=== PATIENT | male | born 1950 | race Caucasian/White ===

== ENCOUNTER → 2022-04-26 | Outpatient (CLI) | payer MEDICARE ==
--- NOTE | 2022-04-26 14:41 | XR ---
EXAMINATION TYPE: XR Hip Complete RT DATE OF EXAM: 04/26/2022 CLINICAL HISTORY: Right hip pain for 2 months. Hip replacement 2019. TECHNIQUE: AP and frogleg views of the right hip are obtained. COMPARISON: None. FINDINGS: There is no acute fracture/dislocation evident in the right hip. Metallic hardware from to [place] right hip arthroplasty is present. Position appears satisfactory. No suspicious surrounding lucen cy identified. Overlying clothing or blanket material is present. IMPRESSION: As above.
== END | disposition home or self-care (01) ==
LOC: RADXRMAIN 14:22
PROVIDERS: ATTEND Internal Medicine
DX: M25.551 Pain in right hip (principal); Z96.641 Presence of right artificial hip joint
CPT/HCPCS: 73502

== ENCOUNTER → 2023-02-02 | Outpatient (CLI) | payer MEDICARE ==
--- NOTE | 2023-02-02 21:25 | MR ---
EXAMINATION TYPE: MR brain wo/w con DATE OF EXAM: 02/02/2023 8:15 PM CLINICAL INDICATION:Male, 72 years old with history of G45.3 AMAUROSIS FUGAX; PHH, Amaurosis fugax of right eye COMPARISON: CT 01/18/2023 TECHNIQUE: Multi planar, multi sequence imaging was performed through the brain including: T1, T2, In version recovery, susceptibility weighted imaging and gradient echo imaging and Diffusion weighted im aging. The patient was then given intravenous contrast and multi planar, T1 fat-saturation images wer e obtained. IV Contrast: 9.5 cc Gadobutrol FINDINGS: The vergara-white junctions, ventricular system, basal cisterns appear unremarkable. Diffusion-weighted imaging shows no evidence of restricted diffusion to suggest acute/subacute infarct. Intracranial ar terial flow voids are maintained. Midline structures show no abnormality. Scattered foci of high T2 s ignal intensity are seen within the periventricular white matter. The susceptibility weighted images do not reveal any evidence for micro-hemorrhage. After administration of gadolinium, no abnormal enha ncement is seen. The bone marrow signal is within normal limits. Paranasal sinuses and mastoid air cells: Mild scattered paranasal sinus disease. Visualized orbits: The globes appear symmetrical. Signal intensity of the globes and optic nerves ar e within normal limits. The intraorbital fat appears preserved. Both lacrimal glands are unremarkab le. The extraocular muscles appear symmetric. After administration of contrast, no abnormal enhanceme nt is seen. IMPRESSION: 1. No evidence of intracranial mass, acute/subacute infarct, or abnormal enhancement. 2. Nonspecific white matter changes, likely related to small vessel ischemic disease 3. No evidence of intraorbital mass or significant abnormality.
== END | disposition home or self-care (01) ==
LOC: RADMRIMAIN 18:59
PROVIDERS: ATTEND Internal Medicine
DX: G45.3 Amaurosis fugax (principal); R90.82 White matter disease, unspecified
CPT/HCPCS: 70553; A9585

== ENCOUNTER → 2023-02-08 | Outpatient (CLI) | payer MEDICARE ==
--- NOTE | 2023-02-08 22:07 | CA ---
Transthoracic Echo Report Name: Jj Odom Age: 72 Gender: M : 1950 Exam Date: 02/08/2023 08:13 Exam Location: [facility] Ht (in): 69 Wt (lb): 215 Ordering Physician: Garland Altamirano MD Attending/Referring Phys: Supervisor [employer] Willow Arre[facility] Procedure CPT: Indications: G45.3 anaurosis fugax R eye Cardiac Hx: Technical Quality: Fair Contrast 1: Agitated Saline Total Dose (mL): 6 Contrast 2: Total Dose (mL): MEASUREMENTS (Male / Female) Normal Values 2D ECHO LV Diastolic Diameter PLAX 4.9 cm 4.2 - 5.9 / 3.9 - 5.3 cm LV Systolic Diameter PLAX 3.1 cm IVS Diastolic Thickness 0.8 cm 0.6 - 1.0 / 0.6 - 0.9 cm LVPW Diastolic Thickness 0.9 cm 0.6 - 1.0 / 0.6 - 0.9 cm LV Relative Wall Thickness 0.4 LVOT Diameter 2.0 cm LA Volume 49.8 cm??? 18 - 58 / 22 - 52 cm??? LA Volume Index 22.5 cm???/m??? 16 - 28 cm???/m??? Ascending Aorta Diameter 3.6 cm M-MODE Aortic Root Diameter MM 3.0 cm LA Systolic Diameter MM 4.4 cm LA Ao Ratio MM 1.4 AV Cusp Separation MM 2.1 cm DOPPLER AV Peak Velocity 125.2 cm/s AV Peak Gradient 6.3 mmHg AV Mean Velocity 92.6 cm/s AV Mean Gradient 3.8 mmHg AV Velocity Time Integral 26.1 cm LVOT Peak Velocity 133.9 cm/s LVOT Peak Gradient 7.2 mmHg LVOT Velocity Time Integral 25.5 cm LVOT Stroke Volume 80.9 cm??? LVOT Stroke Volume Index 38.0 ml/m??? LVOT Cardiac Index 2050.9 cm???/min???m??? AV Area Cont Eq vti 3.1 cm??? AV Area Cont Eq pk 3.4 cm??? MV Area PHT 3.0 cm??? Mitral E Point Velocity 53.8 cm/s Mitral A Point Velocity 62.6 cm/s Mitral E to A Ratio 0.9 MV Deceleration Time 254.5 ms LV E' Lateral Velocity 10.4 cm/s Mitral E to LV E' Lateral Ratio 5.2 LV E' Septal Velocity 6.8 cm/s Mitral E to LV E' Septal Ratio 7.9 TR Peak Velocity 129.9 cm/s TR Peak Gradient 6.7 mmHg Right Atrial Pressure 3.0 mmHg Pulmonary Artery Systolic Pressu 9.7 mmHg Right Ventricular Systolic Press 9.7 mmHg FINDINGS Left Ventricle Left ventricular wall thickness normal. Left ventricular cavity size normal. Normal left ventricular systolic function with no obvious regional wall motion abnormalities. Left ventricular ejection fraction is estimated at 60-65%. Right Ventricle Mild right ventricular dilatation. Right Atrium Upper normal right atrial size. Negative agitated saline bubble study for right to left shunt. Left Atrium Normal left atrial size. Mitral Valve Structurally normal mitral valve. Trace mitral regurgitation. Aortic Valve Trileaflet aortic valve. Aortic valve sclerosis. No aortic regurgitation. Tricuspid Valve Structurally normal tricuspid valve. Trace tricuspid regurgitation. Pulmonic Valve Pulmonic valve not well visualized. Pericardium No pericardial effusion. Aorta Normal size aortic root and normal proximal ascending aorta. CONCLUSIONS Left ventricular ejection fraction is estimated at 60-65%. No obvious regional wall motion abnormalities. Mild right ventricular dilatation. Negative agitated saline bubble study for right to left shunt. Previewed by: Dr Thomas Jhaveri (Electronically Signed) Final Date: 08 February 2023 22:06
== END | disposition home or self-care (01) ==
LOC: RADECHMAIN 08:10
PROVIDERS: ATTEND Internal Medicine
DX: G45.3 Amaurosis fugax (principal); I51.7 Cardiomegaly
CPT/HCPCS: 93225; 93226; 93306

== ENCOUNTER → 2023-02-14 | Outpatient (CLI) | payer MEDICARE ==
--- NOTE | 2023-02-14 08:05 | US ---
EXAMINATION TYPE: US carotid duplex BILAT DATE OF EXAM: 02/14/2023 COMPARISON: NONE CLINICAL INDICATION: Male, 72 years old with history of G45.3 AMAUROSIS FUGAX; Patient states he lost vision in his right eye x 1 month ago for a few days. HTN - on meds. TECHNIQUE: Carotid duplex ultrasound examination. Indirect Doppler criteria was utilized. 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 Elevated right ECA and right pro ximal ICA velocities. Right significant stenosis. IMPRESSION: Greater than 70% stenosis of the right carotid bifurcation and 50-69% stenosis of the left carotid bi furcation. Criteria for Assigning % of Stenosis / Diameter reduction (Estimation based on the indirect measurements of the internal carotid artery velocities (ICA PSV). 1. Normal (no stenosis)=ICA PSV < 125 cm/s: ratio < 2.0: ICA EDV<40 cm/s. 2. Less than 50% stenosis=ICA PSV < 125 cm/s: ratio < 2.0: ICA EDV<40 cm/s. 3. 50 to 69% stenosis=ICA PSV of 125 to 230 cm/s: ration 2.0 ? 4.0: ICA EDV 40-100 cm/s. 4. Greater than 70% stenosis to near occlusion= ICA PSV > 230 cm/s: ratio > 4.0: ICA EDV > 100 cm/s. 5. Near occlusion= ICA PSV velocities may be low or undetectable: variable ratio and ICA EDV. 6. Total occlusion=unable to detect flow.
== END | disposition home or self-care (01) ==
LOC: RADUSWWP 06:54
PROVIDERS: ATTEND Internal Medicine
DX: I65.23 Occlusion and stenosis of bilateral carotid arteries (principal)
CPT/HCPCS: 93880

== ENCOUNTER 2023-04-29 09:43 | Emergency (ER) | payer MEDICARE ==
[2023-04-29 10:15] VITALS: RESP 18
--- NOTE | 2023-04-29 10:39 | ED ---
Extremity Problem HPI - General Chief complaint: Extremity Injury, Upper Stated complaint: DVT R Arm Time Seen by Provider: 04/29/23 09:57 Source: patient, RN notes reviewed Mode of arrival: ambulatory Limitations: no limitations - History of Present Illness Initial comments: This is a 72-year-old male who presents to the emergency department for right a rm pain. States that 2 days ago he noticed pain in the right biceps area, and this has since started to travel down the arm. He has now started to notice redness and swelling to the right forearm. Pain is worse with movement and not particularly bothersome when sitting still. His PCP advised he come to the emergency Department to rule out a DVT. Denies any history of blood clots. Not currently taking blood thinners. Denies any chest pain or shortness of breath. - Related Data Home Medications Medication Instructions Recorded Confirmed Atorvastatin [Lipitor] 40 mg PO HS 03/08/14 04/29/23 Carboxymethylcellulose Sodium 1 drop BOTH EYES TID 04/29/23 04/29/23 [Refresh Tears] Clobetasol Propionate [Clobex 1 applic TOPICAL DAILY 04/29/23 04/29/23 [place] 0.05%] Desonide [Desonide 0.05%] 1 applic TOPICAL BID PRN 04/29/23 04/29/23 Levothyroxine Sodium [Synthroid] 125 mcg PO AC-BRKFST 04/29/23 04/29/23 Lifitegrast [Xiidra] 1 drop BOTH EYES BID 04/29/23 04/29/23 amLODIPine [Norvasc] 10 mg PO HS 04/29/23 04/29/23 hydroCHLOROthiazide 25 mg PO DAILY 04/29/23 04/29/23 lisinopriL [Zestril] 10 mg PO HS 04/29/23 04/29/23 metroNIDAZOLE [Metrolotion] 1 applic TOPICAL BID 04/29/23 04/29/23 Previous Rx's Medication Instructions Recorded Apixaban [Eliquis Starter Pack 5 - 10 mg PO DIRECTED 30 Days 04/29/23 (for VTE)] #1 each Apixaban [Eliquis] 5 - 10 mg PO DIRECTED #70 tab 04/29/23 Allergies Allergy/AdvReac Type Severity Reaction Status Date / Time mercury (elemental) Allergy Rash/Hives Verified 04/29/23 13:00 [Mercury (Elemental)] Review of Systems ROS Statement: Those systems with pertinent positive or pertinent negative responses have been documented in the HPI. ROS Other: All systems not noted in ROS Statement are negative. Past Medical History Past Medical History: Hyperlipidemia, Hypertension History of Any Multi-Drug Resistant Organisms: MRSA Date of last positivie culture/infection: 05/14/19 MDRO Source:: ABDOMEN Past Surgical History: Hernia Repair, Orthopedic Surgery Additional Past Surgical History / Comment(s): umbillical, RIGHT "BABY" FINGER Past Anesthesia/Blood Transfusion Reactions: No Reported Reaction Past Psychological History: No Psychological Hx Reported Smoking Status: Never smoker Past Alcohol Use History: Occasional Past Drug Use History: None Reported - Past Family History Sister(s) Family Medical History: Cancer General Exam Limitations: no limitations General appearance: alert, in no apparent distress Head exam: Present: atraumatic, normocephalic, normal inspection Respiratory exam: Present: normal lung sounds bilaterally. Absent: respiratory distress, wheezes, rales, rhonchi, stridor Cardiovascular Exam: Present: regular rate, normal rhythm, normal heart sounds. Absent: systolic murmur, diastolic murmur, rubs, gallop, clicks Extremities exam: Present: other (There is a localized area of erythema and swelling to the right forearm. Full ROM. 2+ radial pulses.) Neurological exam: Present: alert, oriented X3, CN II-XII intact Psychiatric exam: Present: normal affect, normal mood Course Vital Signs 04/29/23 04/29/23 04/29/23 09:49 11:40 12:47 Temperature 98.4 F 98.6 F 98.6 F Pulse Rate 70 59 L 61 Respiratory 18 18 18 Rate Blood Pressure 104/54 132/78 129/82 O2 Sat by Pulse 94 L 96 96 Oximetry Medical Decision Making - Medical Decision Making This is a 72-year-old male who presents to the emergency department for right arm pain, swelling, and redness. Was pt. sent in by a medical professional or institution? @ -No Did you speak to anyone other than the patient for history? @ -No Did you review nursing and triage notes? @ -Yes, and I agree, it is accurate with regards to the patient's symptoms. Were old charts reviewed? @ -No Differential Diagnosis? @ -Differential Musculoskeletal: Muscular strain, contusion, ligament sprain, fracture, arthritis, septic arthritis, bursitis, cellulitis, muscle spasm, nerve compression, DVT, arterial occlusion, herpes zoster, electrolyte abnormality, tumor.... This is not meant to be in all inclusive list EKG interpreted by me (3pts min.)? @ -Not obtained X-rays interpreted by me (1pt min.)? @ -Not obtained CT interpreted by me (1pt min.)? @ -Not obtained U/S interpreted by me (1pt. min.)? @ -Duplex US of the right upper extremity obtained. My interpretation identifies a DVT. What testing was considered but not performed? (CT, X-rays, U/S, labs)? Why? @ -None What meds were considered but not given? Why? @ -None Did you discuss the management of the patient with other professionals? @ -No Did you reconcile home meds? @ -No Was smoking cessation discussed for >3mins.? @ -No Was critical care preformed (if so, how long)? @ -No Were there social determinants of health that impacted care today? How? (Homelessness, low income, unemployed, alcoholism, drug addiction, transportation, low edu. Level, literacy, decrease access to med. care, care home, rehab)? @ -No Was there de-escalation of care discussed even if they declined? (Discuss DNR or withdrawal of care, Hospice)? @ -No What co-morbidities impacted this encounter? (DM, HTN, Smoking, COPD, CAD, Cancer, CVA, Hep., AIDS, mental health diagnosis, sleep apnea, morbid obesity)? @ -HLD, HTN Was patient admitted / discharged? @ -Discharged. Duplex US of the right upper extremity obtained demonstrating an acute DVT in the right cephalic vein, from the lower upper arm through the antecubital fossa and into the upper to mid forearm. Patient denies any chest pain or shortness of breath. Prescription for Eliquis starter pack provided with dosing instructions reviewed. He was advised to return to the emergency department if he does develop any chest pain or shortness of breath. Also advised Tylenol as needed for pain relief and close follow up with his primary care provider. Patient discharged home in stable condition. Undiagnosed new problem with uncertain prognosis? @ -None Drug Therapy requiring intensive monitoring for toxicity (Heparin, Nitro, Insulin, Cardizem)? @ -None Were any procedures done? @ -None Diagnosis/symptom? @ -DVT, right arm Acute, or Chronic, or Acute on Chronic? @ -Acute Uncomplicated (without systemic symptoms) or Complicated (systemic symptoms)? @ -Uncomplicated Side effects of treatment? @ -None Exacerbation, Progression, or Severe Exacerbation] @ -Not applicable Poses a threat to life or bodily function? @ -Unlikely, however if it were to progress to a PE, it could become a life threatening issue. Return precautions reviewed in depth, the patient is instructed to return to the emergency department with any new, worsening, or concerning symptoms. Patient verbalized understanding. This case was discussed in detail with the attending ED physician, Dr. Christianson. Presentation, findings, and treatment plan discussed in detail as well. - Radiology Data Radiology results: report reviewed, image reviewed Disposition Clinical Impression: Deep vein thrombosis (DVT) of right upper extremity Disposition: HOME SELF-CARE Instructions (If sedation given, give patient instructions): Deep Vein Thrombosis (ED) Additional Instructions: Return to the emergency department with any new, worsening, or concerning symptoms, especially if you develop chest pain or shortness of breath. Take the Eliquis as prescribed and use the savings card provided to reduce the cost. Take Tylenol as needed for pain relief. Follow up with your primary care provider in 1-2 days. Prescriptions: Apixaban [Eliquis] 5 - 10 mg PO DIRECTED #70 tab Apixaban [Eliquis Starter Pack (for VTE)] 5 - 10 mg PO DIRECTED 30 Days #1 each Is patient prescribed a controlled substance at d/c from ED?: No Referrals: Garland Altamirano DO [Primary Care Provider] - 1-2 days
--- NOTE | 2023-04-29 11:19 | US ---
EXAMINATION TYPE: US venous doppler duplex UE RT DATE OF EXAM: 04/29/2023 COMPARISON: NONE CLINICAL INDICATION: Male, 72 years old with history of Redness and swelling; Painful lump right fore arm x 1 week. Hx CEA about 1 month ago SIDE PERFORMED: Right Grayscale ultrasound with color flow Doppler and spectral waveforms were performed of the venous syst em of the right upper extremity. 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 * Incidental note made of right CCA neointimal hyperplasia post CEA at the bulb measuring 0.5 cm.
[2023-04-29 11:53] VITALS: TEMP 98.6
[2023-04-29 13:05] VITALS: BP 129/82; PULSE 61
== END 2023-04-29 13:11 | disposition home or self-care (01) ==
LOC: EC 09:43
DX: I82.621 Acute embolism and thrombosis of deep veins of right upper extremity (principal); I10 Essential (primary) hypertension; E78.5 Hyperlipidemia, unspecified; Z79.899 Other long term (current) drug therapy; Z88.8 Allergy status to other drugs, medicaments and biological substances
CPT/HCPCS: 99283